=== PATIENT | male | born 1970 | race Two or more races ===

== ENCOUNTER → 2021-03-21 14:40 | Outpatient (CLI) | payer OTHER | END | disposition home or self-care (01) | LOC: PPH VACUNA 14:40 | DX: Z23 Encounter for immunization (principal) ==

== ENCOUNTER 2021-04-11 08:00 | Outpatient (CLI) | payer OTHER | END 2021-04-11 08:30 | disposition home or self-care (01) | LOC: PPH VACUNA 08:00 | DX: Z23 Encounter for immunization (principal) ==